=== PATIENT | female | born 1975 | race African-American/Black ===

== ENCOUNTER 2025-02-02 09:10 | Outpatient (REF) | payer OTHER, SELFPAY ==
[2025-02-02 13:15] LABS: Appearance Urine Clear; Glucose Urine UA >=1000 mg/dL (Negative); PH 5.5 (5.0-9.0); Specific Gravity - Urine 1.015 (1.005-1.025); UMIC TRIGGER UACC YES
[2025-02-02 13:23] LABS: UACC Culture Trigger YES
[2025-02-02 13:31] LABS: MANUAL DIFF FLAG NO
[2025-02-02 13:43] LABS: Hematocrit 37.7 % (37.0-47.0); Hemoglobin 13.1 g/dl (12.0-16.0); Imm Gran Abs Auto 0.02 X10*3/uL (0.00-0.03); Imm Gran Pct Auto 0.4 % (0.0-0.4); Lymphocytes Absolute Auto 1.5 X10*3/uL (1.2-4.9); Mean Corpuscular HGB Conc 34.7 g/dl (31.0-35.0); Mean Corpuscular Hemoglobin 29.6 pg (27.0-33.0); Mean Corpuscular Volume 85.3 fL (80.0-98.0); NRBC Abs Auto 0.000 X10*3/uL (0.0-0.012); NRBC Pct Auto 0.0 /100WBC (0.0-0.2); Platelet Count 204 X10*3/uL (160-400); Red Blood Count 4.42 X10*6/uL (4.20-5.50); White Blood Count 5.6 X10*3/uL (4.8-10.8)
[2025-02-02 14:11] LABS: Alanine Aminotransferase 45 U/L (0-31); Albumin Level 4.3 g/dL (3.5-5.0); Alkaline Phosphatase 132 U/L (39-117); Anion Gap 12 (12-20); Aspartate Amino Transferase 37 U/L (5-31); Blood Urea Nitrogen 12 mg/dL (9-16); Calcium 9.5 mg/dL (8.4-10.2); Carbon Dioxide 27 mmol/L (22-29); Chloride 105 mmol/L (96-108); Cholesterol 206 mg/dL (<200); Estimated Glomerular Filt Rate > 60; HDL Cholesterol 40 mg/dL (>40); Magnesium 1.8 mg/dL (1.6-2.6); Potassium 3.9 mmol/L (3.3-5.1); Sodium 140 mmol/L (135-145); Total Protein 7.5 g/dL (6.5-8.0); Triglycerides 160 mg/dL (<150)
[2025-02-02 14:38] LABS: Folate 13.2 ng/mL (> or = 4.0); Vitamin B12 523 pg/mL (200-900)
[2025-02-03 04:20] LABS: HBS Num1 2.73 mIU/mL (0-7.99); HBsAGNum1 0.30 S/CO (0.00-0.99); HIV Num 1 0.05 S/CO (0.00-0.99); Hepatitis B Surface Antigen Negative (Negative); ~HepC Num1 0.08 S/CO (0.00-0.79); ~Hepatitis B Surface Antibody NONREACTIVE (Nonreactive); ~Hepatitis C Antibody Nonreactive (Nonreactive)
[2025-02-05 12:33] LABS: VITAMIN D (1,25 OH) D3 73 pg/mL; Vit D (1,25-Dihydroxy) Total 73 pg/mL (18-72); Vitamin D (1,25 OH) D2 <8 pg/mL
== END 2025-02-02 09:11 | disposition home or self-care (01) ==
LOC: HO.HKASLDS 09:10
PROVIDERS: PCP Student in an Organized Health Care Education/Training Program; Visit Provider Student in an Organized Health Care Education/Training Program
DX: Z13.9 Encounter for screening, unspecified (principal); Z28.82 Immunization not carried out because of caregiver refusal; F43.9 Reaction to severe stress, unspecified; R73.09 Other abnormal glucose; G47.00 Insomnia, unspecified; M25.572 Pain in left ankle and joints of left foot; M79.672 Pain in left foot; Z78.9 Other specified health status; Z56.0 Unemployment, unspecified; Z78.0 Asymptomatic menopausal state
CPT/HCPCS: 36415; 80053; 80061; 81001; 82607; 82652; 82746; 83036; 83735; 84443; 85025; 86706; 86803; 87086; 87088; 87186; 87340; 87389; 90471; 99202

== ENCOUNTER 2025-02-02 09:10 | Outpatient (AMB) | payer OTHER, SELFPAY ==
--- NOTE | 2025-02-02 09:16 | A.OFFPC_ITS ---
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 Preventive Care: The patient has not seen a primary care doctor in two to three years since moving from [place]. Her last mammogram was three years ago. She is due for a Pap smear and has never had a colonoscopy. Postmenopausal State: The patient reports being postmenopausal, with her last menstrual period occurring at age 45 or 46. She experiences associated symptoms including hot flashes. Insomnia: The patient reports she does not sleep well, which she attributes to stress. Ankle and Foot Pain: The patient reports experiencing ankle and heel pain, noting the presence of a bulge in the ankle area. She states the pain sometimes radiates to the back of the knee. Social History: - Substance Use: The patient reports vap ing nicotine. - She drinks alcohol socially and denies illicit drug use. 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 - Housing: [facility] and is in need of a place to stay. - Transportation: She does not have a ca r and finds using buses difficult. - Family: She has children who are grown up. Family History: - The patient denies any family history of colon cancer. Past Medical History - Postmenopausal since age 47-46. - Last primary care visit was 2-3 years ago. - Last mammogram was 3 years ago. Health Maintenance - Last PCP visit was 2-3 years ago. - Mammogram: Due for screening; last per formed 3 years ago. - Pap smear: Due for screening. - Colon Cancer Screening: Patient is due and opted for Cologuard after discussion of options. - Vaccinations: Has received the flu marely t. - Last Tdap is unknown. - Substance use: Vapes nicotine, drinks alcohol socially. [facility] Medical History Unemployed Stress at home Needs assistance with community resources Family History (Updated 02/02/25 @ 09:32 by Dipti Catalan [facility]) Mother Diabetes HTN (hypertension) Father Diabetes Social History Housing: House Patient Tobacco Use Status: Never used Tobacco service: No Current occupational status: unemployed Cognitive needs: No Hearing needs: No Vision needs: Yes (rx glasses) Questionnaire PHQ-9 Over the last 2 weeks, how often have you been bothered by any of the following problems? 1. Little interest or pleasure in doing things: nearly every day 2. Feeling down, depressed, or hopeless: nearly every day 3. Trouble falling or staying asleep, or sleeping too much: nearly every day 4. Feeling tired or having little energy: nearly every day 5. Poor appetite or overeating: more than half the days 6. Feeling bad about yourself - or that you are a failure or have let yourself or your family down: several days 7. Trouble concentrating on things, such as reading the newspaper or watching television: several days 8. Moving or speaking so slowly that other people could have noticed. Or the opposite - being so fidgety or restless that you have been moving around a lot more than usual: several days 9. Thoughts that you would be better off or of hurting yourself in some way: not at all Total score: 17 Depression Screening Interpretation: Positive Depression Screening Follow-up: Follow-up Visit Requested Depression Screening Done: Yes Source: Developed by Drs. Clint Piper, Daisy Andrews, Elier Meyers and colleagues, with an educational bill from [employer]. Thrive Questionnaire Date Thrive assessed: 02/02/25 I am a: Patient What is your living situation today?: I choose not to answer this question Within the past 12 months, did the food you bought not last and you didn't have the money to get more?: I choose not to answer this question Within the past 12 months, did you worry whether your food would run out before you got money to buy more?: I choose not to answer this question Do you have trouble paying for medicines?: I choose not to answer this question Do you have trouble getting transportation to medical appointments?: Yes Do you have trouble paying your heating and electricity bill?: I choose not to answer this question Do you have trouble taking care of your child, family member or friend?: No Do you have trouble with day-to-day activities such as bathing, preparing meals, shopping, managing finances, etc.?: No Are you currently unemployed and looking for a job?: Yes Are you interested in more education?: No Please select the resources that you would like help with: Housing/Longterm, Food, Paying for medicine and Transportation Currently or been in a relationship where the following occur: No concerns reported THRIVE Score: 1 AUDIT C Alcohol Use Questionnaire (AUDIT-C) 1. How often do you have a drink containing alcohol?: Monthly or less 2. How many drinks containing alcohol do you have on a typical day when you are drinking?: 1 or 2 3. How often do you have six or more drinks on one occasion?: Never Total Score: 1 BUDDY-7 AMB Questionnaire BUDDY-7 Date BUDDY - 7 assessed: 02/02/25 Feeling nervous, anxious, or on edge: 1 = Several days Not being able to stop or control worryin = Several days Worrying too much about different things: 1 = Several days Trouble relaxin = Several days Being so restless that it is hard to sit still: 0 = Not at all Becoming easily annoyed or irritable: 1 = Several days Feeling afraid as if something awful might happen: 0 = Not at all Total BUDDY-7 score (0-4 normal; 5-9 mild; 10-14 moderate; 15-21 severe): 5 Source: Developed by Drs. Clint Piper, Daisy Andrews, Elier Meyers and colleagues, with an educational bill from [employer]. Review of Systems Narrative Review of Systems - Constitutional: Reports significant stress. - Endocrine: Reports hot flashes. - Genitourinary: Reports frequent urination. - Gynecologic: Reports being postmenopausal since age 45 or 46. - Musculoskeletal: Reports pain in the ankles and heels, which sometimes radiates to the back of the knee. - Neurological/Psychiatric: Reports insomnia due to stress and feeling lost . - Gastrointestinal: Reports normal bowel movements. 10-point ROS reviewed and negative except as noted in HPI Physical exam (Primary Care) Vital Signs: Last Vital Signs Temp 98.1 F 02/02/25 09:29 Pulse 89 02/02/25 09:29 BP 132/83 02/02/25 09:29 Pulse Ox 96 02/02/25 09:29 Oxygen Delivery Method Room Air 02/02/25 09:29 BMI result Body Mass Index 25.7 Tobacco/Smoking Status: Tobacco use Status Tobacco use date assessed 02/02/25 02/02/25 09:17 Patient Tobacco Use Status Never used Tobacco 02/02/25 09:17 PHQ-9: PHQ-9 Score PHQ-9: Total score 17 02/02/25 10:47 Depression Screening Interpretation: Positive Depression Screening Follow-up: Follow-up Visit Requested Thrive Assessment: Date of Thrive Assessment Date Thrive assessed 02/02/25 02/02/25 09:17 Currently or been in a relationship where the following occur: No concerns reported Narrative Physical Exam General: Well-appearing, in no acute distress. Vital signs: Blood pressure looks good. Body mass index is good. HEENT: Normocephalic, atraumatic. PERRLA, EOMI. Conjunctiva clear, sclera anicteric. Oropharynx clear, mucous membranes moist. TMs intact bilaterally. Neck: Supple, no lymphadenopathy, no thyromegaly, no JVD or carotid bruits. Cardiovascular: RRR, normal S1/S2, no murmurs, rubs, or gallops. Peripheral pulses 2+ and symmetric. No edema. Respiratory: Lungs clear to auscultation bilaterally, no wheezes, rales, or rhonchi. Normal effort. Abdomen: Soft, non-tender, non-distended. Normoactive bowel sounds. No hepatosplenomegaly, no masses. MSK: Full range of motion, no joint swelling or deformity. Normal gait. Reports pain in ankles and heel, with a bulge present. Varus valgus noted. Skin: Warm, dry, intact. No rashes, lesions, or pallor. Neuro: Alert and oriented x3. Cranial nerves II-XII intact. Strength 5/5 throughout. Sensation intact. Reflexes 2+ symmetric. Normal coordination and gait. Psych: Appropriate mood and affect. Normal judgment and insight. Reports stress affecting sleep. Office Procedures Flu Questionnaire Does the patient have a severe egg allergy?: No Does the patient have severe life threatening allergies?: No Does the patient have a fever or illness today?: No Has the patient ever had Guillain-Huntington Syndrome?: No Has the patient ever had any past reaction to a flu shot?: No Results AMB Hemoglobin A1c AMB Hemoglobin A1c 12.0 % Last Edit by Dipti Catalan CMA on 02/02/25 10: 48 Immunizations Fluarix [id number] (PF) 45 mcg (15 mcg x 3)/0.5 mL IM syringe Performing Provider: Dwayne Huntley MD Performing Location: [facility] [place] [facility] Documented (not given) by: Dipti Catalan CMA on 02/02/25 09:38 Reason Not Given: Patient Refused Results Reviewed Results Reviewed: Laboratory Last Values Hgb A1c (Clinic) 12.0 % (4.0-6.0) H 02/02/25 09:32 Coding Level of Care Code New Pt Level 4 (80687) Diagnoses Stress at home F43.9 Unemployed Z56.0 Needs assistance with community resources Z78.9 Elevated glucose level R73.09 Post-menopause Z78.0 Insomnia G47.00 Ankle pain, left M25.572 Left foot pain M79.672 Assessment & Plan Assessment & Plan (1) Stress at home: Code(s): F43.9 - Reaction to severe stress, unspecified Category: Social Hx (2) Unemployed: Code(s): Z56.0 - Unemployment, unspecified Category: Social Hx (3) Needs assistance with community resources: Code(s): Z78.9 - Other specified health status Category: Social Hx (4) Elevated glucose level: Code(s): R73.09 - Other abnormal glucose (5) Post-menopause: Code(s): Z78.0 - Asymptomatic menopausal state (6) Insomnia: Code(s): G47.00 - Insomnia, unspecified (7) Ankle pain, left: Code(s): M25.572 - Pain in left ankle and joints of left foot (8) Left foot pain: Code(s): M79.672 - Pain in left foot Plan Consent Patient was informed and verbally consented to the use of an ambient scribe for clinic note documentation during this visit. Plan 1. Encounter For Preventive Health Services - A comprehensive set of labs will be ordered, including a complete blood count, comprehensive metabolic panel, hemoglobin A1c, lipid panel, hepatitis B and C, HIV screen, magnesium, TSH, vitamin B12, folate, vitamin D, and a urinalysis. - A referral will be placed for a screening mammogram. - An order will be placed for a Cologuard test for colorectal cancer screening. - The patient will schedule a separate appointment for a Pap smear to be performed in the office. - A tetanus (Tdap) vaccine was offered. 2. Ankle And Foot Pain - The patient's leg pain will be discussed at the follow-up visit. - A referral to podiatry may be considered for evaluation, as the patient may need shoe inserts. 3. Social Determinants Of Health - A referral will be made to a community nurse navigator to connect the patient with resources for housing and employment. 4. Follow-Up - The patient will follow up in two weeks to review the results of the blood work. Discussion Notes I had a comprehensive discussion with the patient about establishing care and focusing on preventive health maintenance, as she has not seen a primary care provider in several years. We reviewed the need for several screenings, including a mammogram, Pap smear, and colorectal cancer screening. I explained the two options for colorectal cancer screening: a traditional colonoscopy, which involves sedation and a preparation day, and the at-home Cologuard test. The patient chose to proceed with Cologuard. We also discussed her significant life stressors, including housing insecurity and unemployment, which are af fecting her sleep. I informed her that I would refer her to our community nurse navigator to connect her with local resources that can provide assistance. I ordered comprehensive blood work to get a baseline understanding of her health and will see her back in two weeks to review the results. Patient Instructions - Please complete your blood work today. - You will receive a Cologuard kit in the mail at your home. - The facility will call you to schedule your mammogram. - Please curing pickling packer your phone for scheduling calls, and if you do not receive a call within two weeks, please contact the facility. - Please call our office to schedule a separate appointment for your Pap smear. - A community nurse navigator will reach out to you to provide information on community resources for housing and employment. - Please follow up in the office in two weeks to discuss your lab results. Medical Decision Making The patient is a 49-year-old female establishing care after a multi-year gap. The primary focus of this visit was on preventive health maintenance, as she is overdue for multiple screenings appropriate for her age. Comprehensive lab work was ordered to establish a baseline and evaluate for underlying conditions contributing to her non-specific symptoms, especially given her postmenopausal status and concerns about her hormones. After discussing the risks and benefits of colonoscopy versus Cologuard, the patient's preference for a non-invasive method guided the decision to order Cologuard. The patient's significant psychosocial stressors, including unemployment and housing insecurity, are clearly impacting her well-being and sleep; therefore, a referral to a community nurse navigator is warranted to provide support and connect her with vital resources. Her musculoskeletal complaints of ankle pain and observed leg deformity will be re-evaluated at the follow-up visit, with a potential referral to podiatry if symptoms persist or worsen. The plan is to address the most pr essing health maintenance and social support needs immediately and then reassess her overall health status with the lab results in two weeks. Total time spent caring for the patient today was 30 minutes. This includes time spent before the visit reviewing the chart, time spent documenting, and time spent reviewing laboratory results, diagnostic imaging, medications, performing a medically necessary evaluation, counseling on diagnoses, care coordination Orders: Orders Complete Blood Count Auto Diff Today Z13.9 - Encounter for screening, unspecified Comprehensive Met. Panel Today Z13.9 - Encounter for screening, unspecified Hepatitis B Surface Antigen Today Z13.9 - Encounter for screening, unspecified Hepatitis C Antibody Today Z13.9 - Encounter for screening, unspecified Lipid Panel Today Z13.9 - Encounter for screening, unspecified HIV Ab/Ag Today Z13.9 - Encounter for screening, unspecified AMB Hemoglobin A1c Today Z13.9 - Encounter for screening, unspecified Influenza [id number] Immunization Today Z23 - Encounter for immunization Hemoglobin A1c Today Z13.9 - Encounter for screening, unspecified Hepatitis B Surface Antibody Today Z13.9 - Encounter for screening, unspecified Magnesium Today Z13.9 - Encounter for screening, unspecified TSH reflex Free T4 Today Z13.9 - Encounter for screening, unspecified UA CC w/rflx Micro + Cult Today Z13.9 - Encounter for screening, unspecified Vitamin D 1,25 dihydroxy Today Z13.9 - Encounter for screening, unspecified Vitamin B12 and Folate Today Z13.9 - Encounter for screening, unspecified MM screening mammo BI Today Z12.31 - Encounter for screening mammogram for malignant neoplasm of breast Referrals Nurse Navigator Referral F43.9 - Reaction to severe stress, unspecified, Z56.0 - Unemployment, unspecified, Z78.9 - Other specified health status Cologuard Test Z12.11 - Encounter for screening for malignant neoplasm of colon, Z12.12 - Encounter for screening for malignant neoplasm of rectum
[2025-02-02 09:29] VITALS: BP 132/83; PULSE 89; TEMP 36.7; O2SAT 96; BMI 25.7
== END 2025-02-02 09:53 | disposition home or self-care (01) ==
LOC: HO.HMCFMS 09:11
PROVIDERS: Visit Provider Student in an Organized Health Care Education/Training Program
DX: F43.9 Reaction to severe stress, unspecified (principal); Z56.0 Unemployment, unspecified; Z78.9 Other specified health status; R73.09 Other abnormal glucose; Z78.0 Asymptomatic menopausal state; G47.00 Insomnia, unspecified; M25.572 Pain in left ankle and joints of left foot; M79.672 Pain in left foot; Z23 Encounter for immunization

== ENCOUNTER 2025-02-10 08:57 | Outpatient (AMB) | payer OTHER, SELFPAY ==
[2025-02-10 09:00] VITALS: BP 124/74; PULSE 90; TEMP 36.6; O2SAT 97; BMI 24.0
--- NOTE | 2025-02-10 09:00 | A.OFFPC_ITS ---
Vital Signs 02/10/25 09:00 Height 5 ft 4.72 in Weight 143 lb 4 oz BMI 24.0 BP 124/74 Blood Pressure Location Lt brachial Position Sitting Pulse 90 Pulse Source Pulse Oximeter Temp 97.8 F Temp Source Oral Pulse Oximetry (%) 97 Oxygen Delivery Method Room Air Intake Visit Reasons: lab, resched Allergies naproxen Allergy (Intermediate, Verified 02/10/25 09:00) Itching Medication List - Last Reconciled 02/10/25 by Dwayne Huntley MD dapagliflozin propanediol 10 mg PO DAILY mecobalamin (vitamin B12) 1,000 mcg sublingual BEDTIME metformin 1,000 mg PO BID nitrofurantoin macrocrystal 100 mg PO Q12H rosuvastatin 20 mg PO DAILY Tobacco use date assessed: 02/02/25 Dental Screening Dental Screen Date: 02/02/25 HPI HPI Comments History of Present Illness Details History of Present Illness The patient is a 49-year-old female presenting for a review of recent lab results. Type 2 diabetes mellitus: This is a new diagnosis based on recent laboratory findings showing a random glucose of 334 mg/dL and a hemoglobin A1c of 12%. Hyperlipidemia: Recent lab results indicate hyperlipidemia, with a total cholesterol of 206 mg/dL and triglycerides of 160 mg/dL. Her LDL is also elevated, with a target goal of below 70 mg/dL due to her new diagnosis of diabetes. Urinary tract infection: A recent urinalysis was positive for nitrites and small leukocyte esterase, indicative of a urinary tract infection. Elevated liver function tests: The patient's AST and ALT levels are noted to be elevated, which is thought to be secondary to hyperlipidemia. Medications: - The patient may be taking [id number] nter vitamin D supplements, which she was advised to discontinue. Social History: - Nutrition: Patient's diet includes ite ms such as white rice, white pasta, and white bread. - She reports trying to incorporate joi ds, carrots, and cabbages into her diet. Family History: - Reports mother took metformin and subs equently developed kidney problems. Diagnostic Results: - CBC: White blood cells, red blood cell s, hemoglobin, hematocrit, and platelets are within normal limits. - CMP: Sodium, potassium, and chloride a re normal. - Renal function including BUN, creatini ne, and estimated GFR are good. - Random glucose is elevated at 334 mg/d L. - AST/ALT are elevated. - Hemoglobin A1c: 12%. - Lipid Panel: Total cholesterol is 206 mg/dL, triglycerides are 160 mg/dL. - Vitamin D: 73 (high). - Vitamin B12: Normal. - Folate: Good. - Thyroid function: Good. - Urinalysis: Positive for nitrites and small leukocyte esterase; no microal buminuria or protein detected. - Hepatitis B, Hepatitis C, and HIV scre en: Negative. Past Medical History - Known allergy to naproxen. Health Maintenance - Cardiovascular risk reduction: Discuss ed the importance of aggressive cholesterol management due to type 2 diabetes being a risk factor for future cardiovascular events. - Diabetic care: Referrals have been yessica jenny for a nutrition consultation, a in service educator, and an dial buffer for a diabetic retinopathy screen. - A future referral to a oracle identity management consultant to c heck her feet was also mentioned. - Vitamin supplementation: Advised to st op vitamin D supplements due to a high level of 73. - Follow-up: Plan for follow-up every ree months to monitor A1c, renal function, and lipids. PFSH Medical History Diabetes type 2 Unemployed Stress at home Needs assistance with community resources Family History (Updated 02/02/25 @ 09:32 by Dipti Catalan [facility]) Mother Diabetes HTN (hypertension) Father Diabetes Social History Housing: House Patient Tobacco Use Status: Never used Tobacco service: No Current occupational status: unemployed Cognitive needs: No Hearing needs: No Vision needs: Yes (rx glasses) Questionnaire Thrive Questionnaire Date Thrive assessed: 02/01/25 I am a: Patient What is your living situation today?: I choose not to answer this question Within the past 12 months, did the food you bought not last and you didn't have the money to get more?: I choose not to answer this question Within the past 12 months, did you worry whether your food would run out before you got money to buy more?: I choose not to answer this question Do you have trouble paying for medicines?: I choose not to answer this question Do you have trouble getting transportation to medical appointments?: Yes Do you have trouble paying your heating and electricity bill?: I choose not to answer this question Do you have trouble taking care of your child, family member or friend?: No Do you have trouble with day-to-day activities such as bathing, preparing meals, shopping, managing finances, etc.?: No Are you currently unemployed and looking for a job?: Yes Are you interested in more education?: No Currently or been in a relationship where the following occur: No concerns reported THRIVE Score: 1 BUDDY-7 AMB Questionnaire BUDDY-7 Date BUDDY - 7 assessed: 02/02/25 Source: Developed by Drs. Clint Piper, Daisy Andrews, Elier Meyers and colleagues, with an educational bill from [employer]. Review of Systems Narrative Review of Systems - Constitutional: Reports fatigue and tiredness. 10-point ROS reviewed and negative except as noted in HPI Physical exam (Primary Care) Vital Signs: Last Vital Signs Temp 97.8 F 02/10/25 09:00 Pulse 90 02/10/25 09:00 BP 124/74 02/10/25 09:00 Pulse Ox 97 02/10/25 09:00 Oxygen Delivery Method Room Air 02/10/25 09:00 BMI result Body Mass Index 24.0 Tobacco/Smoking Status: Tobacco use Status Tobacco use date assessed 02/02/25 02/10/25 09:01 Patient Tobacco Use Status Never used Tobacco 02/10/25 09:01 Thrive Assessment: Date of Thrive Assessment Date Thrive assessed 02/01/25 02/10/25 09:01 Currently or been in a relationship where the following occur: No concerns reported Narrative Physical Exam General: Well-appearing, in no acute distress. Vital signs: Within normal limits. HEENT: Normocephalic, atraumatic. PERRLA, EOMI. Conjunctiva clear, sclera anicteric. Oropharynx clear, mucous membranes moist. TMs intact bilaterally. Neck: Supple, no lymphadenopathy, no thyromegaly, no JVD or carotid bruits. Cardiovascular: RRR, normal S1/S2, no murmurs, rubs, or gallops. Peripheral pulses 2+ and symmetric. No edema. Respiratory: Lungs clear to auscultation bilaterally, no wheezes, rales, or rhonchi. Normal effort. Abdomen: Soft, non-tender, non-distended. Normoactive bowel sounds. No hepatosplenomegaly, no masses. MSK: Full range of motion, no joint swelling or deformity. Normal gait. Skin: Warm, dry, intact. No rashes, lesions, or pallor. Neuro: Alert and oriented x3. Cranial nerves II-XII intact. Strength 5/5 throughout. Sensation intact. Reflexes 2+ symmetric. Normal coordination and gait. Psych: Appropriate mood and affect. Normal judgment and insight. Coding Level of Care Code Est Pt Level 3 (50855) Diagnoses Diabetes type 2 E11.9 Hyperlipidemia E78.5 Elevated liver enzymes R74.8 Urinary tract infection N39.0 Assessment & Plan Assessment & Plan (1) Diabetes type 2: Code(s): E11.9 - Type 2 diabetes mellitus without complications Category: Medical (2) Hyperlipidemia: Code(s): E78.5 - Hyperlipidemia, unspecified Category: Medical (3) Elevated liver enzymes: Code(s): R74.8 - Abnormal levels of other serum enzymes Category: Medical (4) Urinary tract infection: Code(s): N39.0 - Urinary tract infection, site not specified Plan Consent The risks, benefits, and alternatives of initiating oral medications for diabetes were discussed. The patient expressed concern regarding metformin due to her mother's history of kidney problems associated with the medication. It was explained that her kidney function is currently normal and will be monitored closely every three months to ensure safety. The patient understood and verbally consented to a trial of metformin with close follow-up. Patient was informed and verbally consented to the use of an ambient scribe for clinic note documentation during this visit. Plan 1. Type 2 Diabetes Mellitus - Start metformin to lower hemoglobin A1c. - Counseling was provided on taking the medication with food and the potential for temporary gastrointestinal side effects such as nausea, bloating, or gas; if symptoms persist beyond two weeks, the patient should return to be switched to an extended-release formula. - Start dapagliflozin, which provides kidney and heart protection. - Start vitamin B12 supplementation, as metformin can lower B12 levels. - Defer initiating insulin therapy at this time, with the goal of lowering A1c with oral agents first. - Placed referrals to nutrition for dietary education and to a in service educator. - Place referral to ophthalmology to screen for diabetic retinopathy. - A podiatry referral will be considered later. - Patient was educated that home glucose monitoring is not necessary at this time as she is not on insulin. - The patient was counseled on diet, including reducing intake of white rice, pasta, and bread, and increasing consumption of green vegetables. - Will recheck hemoglobin A1c, renal function, and lipids every three months. 2. Hyperlipidemia - Start rosuvastatin 20 mg daily to manage cholesterol and reduce cardiovascular risk, with a target LDL of less than 70 mg/dL. 3. Urinary Tract Infection - Prescribe nitrofurantoin (Macrobid), one pill in the morning and one at night for five days. 4. Elevated Liver Function Tests - The elevated liver enzymes are attributed to hyperlipidemia and are expected to normalize with treatment. - Order a baseline ultrasound of the liver. 5. Follow-Up - Return to clinic in one month to touch base and assess medication tolerance. Discussion Notes I reviewed the lab results with the patient, which revealed a new diagnosis of type 2 diabetes with a random glucose of 334 and an A1c of 12%. I explained that while her numbers are high enough to warrant insulin, I would prefer to start with a comprehensive oral medication regimen first, which includes metformin and dapagliflozin. The patient voiced concerns about metformin causing kidney damage, as she believes happened to her mother. I reassured her that her current kidney function is good and that we will monitor it closely every three months to ensure her safety, after which she agreed to try the medication. I also discussed the diagnosis of hyperlipidemia, with a cholesterol of 206 and triglycerides of 160, and explained the need to start rosuvastatin 20 mg to reduce her cardiovascular risk, aiming for an LDL below 70. I informed her that her urinalysis was positive for an infection, for which I am prescribing a five- day course of nitrofurantoin. We discussed that her elevated liver enzymes are likely due to her high lipid levels and should normalize with treatment, but a baseline liver ultrasound will be ordered. I advised her to discontinue any vitamin D supplements due to a high level and to start vitamin B12 supplementation concurrently with metformin. I have placed referrals for a in service educator, surface grinder, and dial buffer as part of a comprehensive care plan. The patient was instructed to follow up in one month to assess medication tolerance. Patient Instructions - You have been diagnosed with type 2 diabetes based on your recent lab work. - Take the following new medications as prescribed: Metformin, Dapagliflozin, Rosuvastatin, and a Vitamin B12 supplement. - Take Metformin with food. - You may experience some stomach upset, bloating, or gas for the first one to two weeks, which is normal. - If these symptoms continue after two weeks, please contact our office. - You have a urine infection. - Take the antibiotic (Nitrofurantoin) one time in the morning and one time at night for five days. - If you are taking any Vitamin D supplements, please stop taking them. - You will need to make changes to your diet to help control your blood sugar. - Reduce your intake of white rice, white pasta, and white bread. - Increase your intake of green vegetables like kale, spinach, and lettuce. - You do not need to check your blood sugar with a finger prick machine at home. - We have placed referrals for you to see an eye doctor, a surface grinder, and a environmental educator. - Please schedule a follow-up appointment to see me in one month. Medical Decision Making The patient is a 49-year-old female with new-onset, severe hyperglycemia (HgbA1c 12.0%, random glucose 334 mg/dL) and mixed hyperlipidemia. Although her A1c level could warrant immediate insulin therapy, the decision was made to initiate aggressive oral therapy first, given this is a new diagnosis and to avoid the significant lifestyle changes associated with insulin. Metformin was chosen as the cornerstone of treatment, and though the patient expressed concern due to her mother's history of renal complications, her own renal function is currently normal, and she was reassured with a plan for close monitoring every three months. Dapagliflozin (SGLT2 inhibitor) was added for its dual glycemic and cardio-renal protective benefits. Given her new diagnosis of diabetes, which is a significant atherosclerotic cardiovascular disease risk equivalent, high-intensity statin therapy with rosuvastatin 20 mg was initiated for primary prevention, with a goal LDL less than 70 mg/dL. The mildly elevated liver transaminases are presumed secondary to non-alcoholic fatty liver disease in the setting of her dyslipidemia, and a baseline liver ultrasound is warranted. Urinalysis finding of nitrites and leukocyte esterase prompted treatment for a UTI with a 5-day course of nitrofurantoin. A comprehensive, team-based approach has been initiated with referrals to ophthalmology, nutrition, and a in service educator to provide robust support and education. Follow-up is scheduled in one month to assess medication tolerance and then quarterly to monitor glycemic control and renal function. Total time spent caring for the patient today was 20 minutes. This includes time spent before the visit reviewing the chart, time spent documenting, and time spent reviewing laboratory results, diagnostic imaging, medications, performing a medically necessary evaluation, counseling on diagnoses, care coordination Orders: Referrals Nurse Navigator Referral E11.9 - Type 2 diabetes mellitus without complications Nutrition/Dietitian Referral E11.9 - Type 2 diabetes mellitus without c omplications Ophthalmology Referral E11.9 - Type 2 diabetes mellitus without complications, Z13.5 - Encounter for screening for eye and ear disorders Medications: New mecobalamin (vitamin B12) place tablet under tongue and allow to dissolve for at least30 secs before swallowing 1,000 mcg sublingual BEDTIME 90 tabs 0RF nitrofurantoin macrocrystal must administer with a meal/food 100 mg PO Q12H 10 caps 0RF metformin 1,000 mg PO BID 180 tabs 0RF E11.9 - Type 2 diabetes mellitus without complications rosuvastatin 20 mg PO DAILY 90 tabs 0RF dapagliflozin propanediol 10 mg PO DAILY 90 tabs 0RF E11.9 - Type 2 diabetes mellitus without complications
== END 2025-02-10 10:07 | disposition home or self-care (01) ==
LOC: HO.HMCFMS 08:57
PROVIDERS: PCP Student in an Organized Health Care Education/Training Program; Visit Provider Student in an Organized Health Care Education/Training Program
DX: E11.9 Type 2 diabetes mellitus without complications (principal); E78.5 Hyperlipidemia, unspecified; R74.8 Abnormal levels of other serum enzymes; N39.0 Urinary tract infection, site not specified

== ENCOUNTER → 2025-02-10 08:57 | Outpatient (BNVA) | payer OTHER, SELFPAY | PROVIDERS: PCP Family Medicine; Visit Provider Student in an Organized Health Care Education/Training Program | DX: E11.9 Type 2 diabetes mellitus without complications (principal); E78.5 Hyperlipidemia, unspecified; R74.8 Abnormal levels of other serum enzymes; N39.0 Urinary tract infection, site not specified | CPT/HCPCS: 99212 ==

== ENCOUNTER 2025-02-17 08:50 | Outpatient (AMB) | payer OTHER, SELFPAY ==
--- NOTE | 2025-02-17 08:55 | A.OFFPC_ITS ---
Vital Signs 02/17/25 08:58 Height 5 ft 4.72 in Weight 151 lb BMI 25.3 BP 140/93 H Blood Pressure Location Rt brachial Position Sitting Respiration 18 Pulse 97 Pulse Source Monitor Temp 99.2 F Temp Source Oral Pulse Oximetry (%) 96 Oxygen Delivery Method Room Air Intake Visit Reasons: Lab Review/PAP Intake Note: lab review/ pap Classroom Assistant Required: No Accompanied by: Self / Same As Patient Allergies naproxen Allergy (Intermediate, Verified 02/17/25 08:57) Itching Tobacco use date assessed: 02/02/25 Dental Screening Dental Screen Date: 02/02/25 HPI HPI Comments History of Present Illness Details History of Present Illness The patient is a 49 year old female presenting for a Papanicolaou (Pap) smear. Preventative Care: Papanicolaou (Pap) Smear: The patient is scheduled for a routine Papanicolaou (Pap) smear. Elevated blood pressure reading: A previous blood pressure reading was 124/74 mmHg. An elevated reading was noted during this visit, but it was taken incorrectly with the patient's arms hanging down. The elevated reading is also attributed to patient anxiety regarding the Pap smear procedure. Long-term (current) drug therapy: The patient is currently taking Dapagliflozin. Lab results related to her medication have been previously reviewed. Medications: - Dapagliflozin Diagnostic Results: - Vitals: - Previous blood pressure: 124/74 mmHg - Labs: - Prior lab results were reviewed with the patient before this visit; specific values were not discussed. Past Medical History - The patient is taking Dapagliflozin, i ndicating a chronic condition being managed. Health Maintenance - Cervical Cancer Screening: Patient pre sents for a Papanicolaou (Pap) smear. [facility] Medical History Diabetes type 2 Unemployed Stress at home Needs assistance with community resources Family History Mother Diabetes HTN (hypertension) Father Diabetes Social History (Updated 02/17/25 @ 08:58 by Jluis Petty CMA) Housing: House Alcohol intake: current Comment: ocasionally Patient Tobacco Use Status: Never used Tobacco Use of substances other than those prescribed or required for medical reasons: No service: No Current occupational status: unemployed Cognitive needs: No Hearing needs: No Vision needs: Yes (rx glasses) Questionnaire Thrive Questionnaire Date Thrive assessed: 02/01/25 I am a: Patient What is your living situation today?: I choose not to answer this question Within the past 12 months, did the food you bought not last and you didn't have the money to get more?: I choose not to answer this question Within the past 12 months, did you worry whether your food would run out before you got money to buy more?: I choose not to answer this question Do you have trouble paying for medicines?: I choose not to answer this question Do you have trouble getting transportation to medical appointments?: Yes Do you have trouble paying your heating and electricity bill?: I choose not to answer this question Do you have trouble taking care of your child, family member or friend?: No Do you have trouble with day-to-day activities such as bathing, preparing meals, shopping, managing finances, etc.?: No Are you currently unemployed and looking for a job?: Yes Are you interested in more education?: No Currently or been in a relationship where the following occur: No concerns reported THRIVE Score: 1 BUDDY-7 AMB Questionnaire BUDDY-7 Date BUDDY - 7 assessed: 02/02/25 Source: Developed by Drs. Clint Piper, Daisy Andrews, Elier Meyers and colleagues, with an educational bill from [employer]. Review of Systems Narrative Review of Systems - Psychiatric: Reports anxiety and worry related to the scheduled Pap smear. 10-point ROS reviewed and negative except as noted in HPI Physical exam (Primary Care) Vital Signs: Last Vital Signs Temp 99.2 F 02/17/25 08:58 Pulse 97 02/17/25 08:58 Resp 18 02/17/25 08:58 BP 140/93 H 02/17/25 08:58 Pulse Ox 96 02/17/25 08:58 Oxygen Delivery Method Room Air 02/17/25 08:58 BMI result Body Mass Index 25.3 Tobacco/Smoking Status: Tobacco use Status Tobacco use date assessed 02/02/25 02/17/25 09:00 Patient Tobacco Use Status Never used Tobacco 02/17/25 09:00 Thrive Assessment: Date of Thrive Assessment Date Thrive assessed 02/01/25 02/17/25 09:00 Currently or been in a relationship where the following occur: No concerns reported Narrative Physical Exam General: Well-appearing, in no acute distress. Vital signs: Blood pressure recorded previously as 124/74. HEENT: Normocephalic, atraumatic. PERRLA, EOMI. Conjunctiva clear, sclera anicteric. Oropharynx clear, mucous membranes moist. TMs intact bilaterally. Neck: Supple, no lymphadenopathy, no thyromegaly, no JVD or carotid bruits. Cardiovascular: RRR, normal S1/S2, no murmurs, rubs, or gallops. Peripheral pulses 2+ and symmetric. No edema. Respiratory: Lungs clear to auscultation bilaterally, no wheezes, rales, or rhonchi. Normal effort. Abdomen: Soft, non-tender, non-distended. Normoactive bowel sounds. No h epatosplenomegaly, no masses. MSK: Full range of motion, no joint swelling or deformity. Normal gait. Skin: Warm, dry, intact. No rashes, lesions, or pallor. Neuro: Alert and oriented x3. Cranial nerves II-XII intact. Strength 5/5 throughout. Sensation intact. Reflexes 2+ symmetric. Normal coordination and gait. Psych: Appropriate mood and affect. Normal judgment and insight. Coding Level of Care Code Est Pt Level 3 (62506) Diagnoses Diabetes type 2 E11.9 Cervical cancer screening Z12.4 Assessment & Plan Assessment & Plan (1) Diabetes type 2: Code(s): E11.9 - Type 2 diabetes mellitus without complications Category: Medical (2) Cervical cancer screening: Code(s): Z12.4 - Encounter for screening for malignant neoplasm of cervix Plan Consent Informed consent was obtained for the Papanicolaou (Pap) smear after a detailed explanation of the procedure. The process was described to include a manual pelvic examination to assess the uterus, ovaries, and locate the cervix. It was explained that a speculum, which may be cold and lubricated, would then be inserted to visualize the cervix, followed by the use of a small brush to collect cervical cells. Patient was informed and verbally consented to the use of an ambient scribe for clinic note documentation during this visit. Plan 1. Preventative Care: Papanicolaou (Pap) Smear - Proceed with the Papanicolaou (Pap) smear as planned. - The procedure will include a manual pelvic exam, followed by speculum insertion to visualize the cervix, and collection of cells with a small brush. Patient placed in dorsal lithotomy position. A speculum was inserted to visualize the cervix. The cervical os and transformation zone were identified. Using a brush ectocervical cells were obtained by rotating the spatula 360? around the external os. liquid-based cytology, spatula was rinsed in preservative solution per protocol 2. Elevated Blood Pressure Reading - Recheck blood pressure using the correct technique, as the initial measurement was performed improperly. - Reassured the patient that antihypertensive medication is not indicated at this time, as the elevated reading is likely secondary to incorrect technique and situational anxiety. Discussion Notes I confirmed with the patient that the primary reason for today's visit is the Pap smear, as her lab results related to Dapagliflozin therapy had already been reviewed. I noted the blood pressure was taken incorrectly and explained that we would re-measure it properly. I reassured her that I would not be prescribing blood pressure medication, attributing the likely elevation to anxiety about the procedure. I then detailed the Pap smear procedure to provide informed consent and alleviate her concerns. I explained that I would first perform a manual pelvic exam to assess her organs and locate the cervix before inserting a speculum, and then use a small brush to collect the cells. Patient Instructions - Your blood pressure will be taken again to ensure it is measured correctly. - For the Pap smear, the doctor will first perform a manual exam to check your uterus and ovaries. - A device called a speculum will then be inserted; it may feel cold. - A small brush will be used to collect a sample of cells from your cervix. Medical Decision Making The patient presented for a scheduled Pap smear. A chart note for lab review was disregarded as we had previously discussed her results and management with Dapagliflozin. A blood pressure reading was taken improperly prior to my evaluation. Given her prior normal reading of 124/74 mmHg and her stated anxiety about the pelvic exam, I am not concerned for new-onset hypertension. The plan is to re-measure her blood pressure with correct technique for an accurate assessment, and I have reassured the patient that I do not intend to start antihypertensive therapy at this time. To ensure patient understanding and comfort, I provided a [id number] explanation of the Pap smear procedure, covering the manual exam, speculum insertion, and cell collection. Total time spent caring for the patient today was 20 minutes. This includes time spent before the visit reviewing the chart, time spent documenting, and time spent reviewing laboratory results, diagnostic imaging, medications, performing a medically necessary evaluation, counseling on diagnoses, care coordination. Orders: Orders Pap Smear Today Z12.4 - Encounter for screening for malignant neoplasm of cervix
[2025-02-17 08:58] VITALS: BP 140/93; PULSE 97; RESP 18; TEMP 37.3; O2SAT 96; BMI 25.3
== END 2025-02-17 09:30 | disposition home or self-care (01) ==
LOC: HO.HMCFMS 08:51
PROVIDERS: PCP Student in an Organized Health Care Education/Training Program; Visit Provider Student in an Organized Health Care Education/Training Program
DX: E11.9 Type 2 diabetes mellitus without complications (principal); Z12.4 Encounter for screening for malignant neoplasm of cervix

== ENCOUNTER 2025-02-17 08:50 | Outpatient (REF) | payer OTHER, SELFPAY | END 2025-02-17 08:51 | disposition home or self-care (01) | LOC: HO.LNP 08:50 | PROVIDERS: PCP Family Medicine; Visit Provider Student in an Organized Health Care Education/Training Program | DX: Z12.4 Encounter for screening for malignant neoplasm of cervix (principal); E11.9 Type 2 diabetes mellitus without complications; Z79.899 Other long term (current) drug therapy | CPT/HCPCS: 88175; 99212 ==

== ENCOUNTER 2025-03-17 08:52 | Outpatient (AMB) | payer OTHER, SELFPAY ==
--- NOTE | 2025-03-17 08:59 | MHC.PC.OV ---
Vital Signs 03/17/25 09:01 Height 5 ft 4.72 in Intake Visit Reasons: 1 mo f/u Accompanied by: Self / Same As Patient Allergies naproxen Allergy (Intermediate, Verified 03/17/25 09:01) Itching Medication List - Last Reconciled 03/17/25 by Dwayne Huntley MD dapagliflozin propanediol 10 mg PO DAILY mecobalamin (vitamin B12) 1,000 mcg sublingual BEDTIME metformin 1,000 mg PO BID rosuvastatin 20 mg PO DAILY Tobacco use date assessed: 03/17/25 Dental Screening Dental Screen Date: 03/17/25 Did you have a dental visit in the last 12 months?: No HPI HPI Comments History of Present Illness Details History of Present Illness The patient is a 49 year old female presenting with a follow-up visit to review Pap smear results. Bilateral Heel Pain: The patient reports bilateral heel pain that has been present for approximately 3 to 4 years. She reports the pain is present in both heels but is more prominent in one leg. She also notes a bulge on her ankle and experiences a sharp pain in her heel upon standing after sitting, which heats up and travels to behind her knee. Associated symptoms include a feeling of being off balance. Chest Pain: The patient reports experiencing sharp pains in the heart area, which started approximately one to two weeks ago. Tobacco Use: The patient reports using a vape. Diabetes Mellitus: The patient has a history of diabetes, which she mentioned in the context of an application for disability. Social History: - Housing/Living Situation: The patient is currently staying with various friends and family members. - Employment: The patient is looking for a job and has applied for salazar assistance, which was denied. - Substance Use: The patient reports vaping. Diagnostic Results: - Pap smear: Results were normal. - Cologuard: Results are pending. Past Medical History - Diabetes mellitus Health Maintenance - Cervical cancer screening: Pap smear results were normal; next screening is due in three years. - Colon cancer screening: The patient completed a Cologuard test, but results are not yet available. - Substance use: The patient was advised to stop vaping due to associated cardiovascular risks. PFSH Medical History Vapes non-nicotine containing substance Sinus tachycardia Chest pain Heel pain Diabetes type 2 Unemployed Stress at home Needs assistance with community resources Family History Mother Diabetes HTN (hypertension) Father Diabetes Social History Housing: House Alcohol intake: current Comment: ocasionally Patient Tobacco Use Status: Never used Tobacco e-Cigarette/Vaping Use: Currently Using service: No Current occupational status: unemployed Cognitive needs: Yes (cane) Hearing needs: No Vision needs: Yes (rx glasses) Questionnaire PHQ-9 Over the last 2 weeks, how often have you been bothered by any of the following problems? 1. Little interest or pleasure in doing things: nearly every day 2. Feeling down, depressed, or hopeless: nearly every day 3. Trouble falling or staying asleep, or sleeping too much: nearly every day 4. Feeling tired or having little energy: nearly every day 5. Poor appetite or overeating: more than half the days 6. Feeling bad about yourself - or that you are a failure or have let yourself or your family down: several days 7. Trouble concentrating on things, such as reading the newspaper or watching television: several days 8. Moving or speaking so slowly that other people could have noticed. Or the opposite - being so fidgety or restless that you have been moving around a lot more than usual: several days 9. Thoughts that you would be better off or of hurting yourself in some way: not at all Total score: 17 Depression Screening Interpretation: Positive Depression Screening Follow-up: Follow-up Visit Requested Depression Screening Done: Yes Source: Developed by Drs. Clint Piper, Daisy Andrews, Elier Meyers and colleagues, with an educational bill from [employer]. Thrive Questionnaire Date Thrive assessed: 03/17/25 I am a: Patient What is your living situation today?: I choose not to answer this question Within the past 12 months, did the food you bought not last and you didn't have the money to get more?: I choose not to answer this question Within the past 12 months, did you worry whether your food would run out before you got money to buy more?: I choose not to answer this question Do you have trouble paying for medicines?: I choose not to answer this question Do you have trouble getting transportation to medical appointments?: Yes Do you have trouble paying your heating and electricity bill?: I choose not to answer this question Do you have trouble taking care of your child, family member or friend?: No Do you have trouble with day-to-day activities such as bathing, preparing meals, shopping, managing finances, etc.?: No Are you currently unemployed and looking for a job?: Yes Are you interested in more education?: No Currently or been in a relationship where the following occur: No concerns reported THRIVE Score: 1 AUDIT C Alcohol Use Questionnaire (AUDIT-C) 1. How often do you have a drink containing alcohol?: Monthly or less 2. How many drinks containing alcohol do you have on a typical day when you are drinking?: 1 or 2 3. How often do you have six or more drinks on one occasion?: Never Total Score: 1 BUDDY-7 AMB Questionnaire BUDDY-7 Date BUDDY - 7 assessed: 03/17/25 Feeling nervous, anxious, or on edge: 0 = Not at all Not being able to stop or control worryin = Not at all Worrying too much about different things: 0 = Not at all Trouble relaxin = Not at all Being so restless that it is hard to sit still: 0 = Not at all Becoming easily annoyed or irritable: 0 = Not at all Feeling afraid as if something awful might happen: 0 = Not at all Total BUDDY-7 score (0-4 normal; 5-9 mild; 10-14 moderate; 15-21 severe): 0 Source: Developed by Drs. Clint Piper, Daisy Andrews, Elier Meyers and colleagues, with an educational bill from [employer]. Review of Systems Narrative Review of Systems - Musculoskeletal: Reports bilateral heel pain for 3-4 years, which is sometimes sharp, and notes a bulge on her ankle. - Neurological: Reports feeling off balance at times. - Cardiovascular: Reports sharp pains in the heart area for the past 1-2 weeks. 10-point ROS reviewed and negative except as noted in HPI Physical exam (Primary Care) Tobacco/Smoking Status: Tobacco use Status Tobacco use date assessed 03/17/25 03/17/25 09:03 Patient Tobacco Use Status Never used Tobacco 03/17/25 09:03 e-Cigarette/Vaping Use Currently Using 03/17/25 09:03 PHQ-9: PHQ-9 Score PHQ-9: Total score 17 03/17/25 09:29 Depression Screening Interpretation: Positive Depression Screening Follow-up: Follow-up Visit Requested Thrive Assessment: Date of Thrive Assessment Date Thrive assessed 03/17/25 03/17/25 09:03 Currently or been in a relationship where the following occur: No concerns reported Narrative Physical Exam General: Well-appearing, in no acute distress. Vital signs: Within normal limits. HEENT: Normocephalic, atraumatic. PERRLA, EOMI. Conjunctiva clear, sclera anicteric. Oropharynx clear, mucous membranes moist. TMs intact bilaterally. Neck: Supple, no lymphadenopathy, no thyromegaly, no JVD or carotid bruits. Cardiovascular: RRR, normal S1/S2, no murmurs, rubs, or gallops. Peripheral pulses 2+ and symmetric. No edema. Patient reports sharp pain in the heart area, started noticing about two weeks ago. Electrocardiogram to be performed. Respiratory: Lungs clear to auscultation bilaterally, no wheezes, rales, or rhonchi. Normal effort. Abdomen: Soft, non-tender, non-distended. Normoactive bowel sounds. No hepatosplenomegaly, no masses. MSK: Full range of motion, no joint swelling or deformity. Normal gait. Patient reports bilateral heel pain, more pronounced on the left, ongoing for three to four years, with a bulge on the ankle. Referral to podiatry provided. Skin: Warm, dry, intact. No rashes, lesions, or pallor. Neuro: Alert and oriented x3. Cranial nerves II-XII intact. Strength 5/5 throughout. Sensation intact. Reflexes 2+ symmetric. Normal coordination and gait. Patient reports sometimes feeling out of balance. Psych: Appropriate mood and affect. Normal judgment and insight. Office Procedures Flu Questionnaire Does the patient have a severe egg allergy?: No Does the patient have severe life threatening allergies?: No Does the patient have a fever or illness today?: No Has the patient ever had Guillain-Quinnesec Syndrome?: No Has the patient ever had any past reaction to a flu shot?: No Immunizations Fluarix [id number] (PF) 45 mcg (15 mcg x 3)/0.5 mL IM syringe Performing Provider: Dwayne Huntley MD [place]forming Location: [facility] Documented (not given) by: Dipti Catalan CMA on 03/17/25 09:05 Reason Not Given: Patient Refused Coding Level of Care Code Est Pt Level 3 (57335) Add On Problem Visit Only Diagnoses Sinus tachycardia R00.0 Chest pain R07.9 Diabetes type 2 E11.9 Hyperlipidemia E78.5 Heel pain M79.673 Stress at home F43.9 Unemployed Z56.0 Vapes non-nicotine containing substance Z72.89 Assessment & Plan Assessment & Plan (1) Sinus tachycardia: Code(s): R00.0 - Tachycardia, unspecified Category: Medical (2) Chest pain: Code(s): R07.9 - Chest pain, unspecified Category: Medical (3) Diabetes type 2: Code(s): E11.9 - Type 2 diabetes mellitus without complications Category: Medical (4) Hyperlipidemia: Code(s): E78.5 - Hyperlipidemia, unspecified Category: Medical (5) Heel pain: Code(s): M79.673 - Pain in unspecified foot Category: Medical (6) Stress at home: Code(s): F43.9 - Reaction to severe stress, unspecified Category: Medical (7) Unemployed: Code(s): Z56.0 - Unemployment, unspecified Category: Medical (8) Vapes non-nicotine containing substance: Code(s): Z72.89 - Other problems related to lifestyle Category: Medical Plan Consent Patient was informed and verbally consented to the use of an ambient scribe for clinic note documentation during this visit. Plan 1. Pap Smear Screening - The patient was informed that her Pap smear results were normal. - Follow-up Pap smear is scheduled in three years. 2. Cologuard Screening - The results for the Cologuard test are pending. 3. Ssi Application Paperwork - The patient was advised to provide the SSI forms to the front desk supervisor to be filled out. 4. Bilateral Heel Pain - A referral to podiatry will be provided for further evaluation of bilateral heel pain and associated unsteadiness. 5. Chest Pain - The patient was advised to stop vaping as a first step. - An electrocardiogram (EKG) will be performed in the office today. - The patient was instructed to go to the emergency room if she experiences chest pain with pressure or shortness of breath. Discussion Notes I informed the patient that her Pap smear results were normal and that she will not need to repeat the test for another three years. Regarding her new onset of sharp chest pain, I discussed that vaping puts her at risk for heart problems and advised her to stop. I advised her to proceed to the emergency room for any chest pain accompanied by pressure or shortness of breath. We will proceed with an in-office EKG today to evaluate her symptoms. For her chronic bilateral heel pain, I will provide a referral to podiatry. I also agreed to complete disability forms for her and instructed her to leave them with the front [employer] staff. Patient Instructions - Your Pap smear results are normal. Your next Pap smear is due in three years. - We will perform an EKG in the office today to check your heart. - Go to the emergency room if you experience chest pain, pressure on your chest, or feel out of breath. - It is important that you stop vaping, as it increases your risk for heart problems. - I will give you a referral to a manager of selection and assessment (foot doctor) to evaluate your heel pain. - Please leave the forms you have with the stockroom clerk at the [employer] so I can fill them out for you. Medical Decision Making The patient presented for results review and to discuss several chronic and new complaints. Her recent Pap smear was normal, and she is due for repeat screening in three years. She reports new onset sharp chest pain, which is concerning given her active vaping. While this could be anxiety-related, the risk from vaping warrants an initial cardiac workup. An in-office EKG was ordered to assess for any acute abnormalities, and she was counseled on smoking cessation and given strict return precautions to seek emergency care for worsening symptoms. Her chronic bilateral heel pain has been ongoing for years and is associated with unsteadiness and a sharp character upon ambulation. Given the duration and symptoms, a referral to podiatry is appropriate for specialized evaluation. Finally, I will assist the patient by completing her disability paperwork related to her diabetes and other health concerns to support her application for financial assistance. Total Time Statement 20 min Total time spent caring for the patient today includes pre-visit chart review, documentation, review of laboratory and diagnostic imaging results, medication reconciliation, medically necessary evaluation, counseling on diagnoses, care coordination, ordering appropriate tests and medications, review of tests performed by other providers, reporting test results to the patient, and communication with other healthcare providers. Orders: Orders AMB EKG-In Office Today Z13.6 - Encounter for screening for cardiovascular disorders Influenza [id number] Immunization Today Z23 - Encounter for immunization Referrals Podiatry Referral M79.673 - Pain in unspecified foot
== END 2025-03-17 09:33 | disposition home or self-care (01) ==
LOC: HO.HMCFMS 08:52
PROVIDERS: PCP Family Medicine; Visit Provider Student in an Organized Health Care Education/Training Program
DX: R00.0 Tachycardia, unspecified (principal); R07.9 Chest pain, unspecified; E11.9 Type 2 diabetes mellitus without complications; E78.5 Hyperlipidemia, unspecified; M79.673 Pain in unspecified foot; F43.9 Reaction to severe stress, unspecified; Z56.0 Unemployment, unspecified; Z72.89 Other problems related to lifestyle; Z23 Encounter for immunization

== ENCOUNTER → 2025-03-17 08:52 | Outpatient (BNVA) | payer OTHER, SELFPAY | PROVIDERS: PCP Family Medicine; Visit Provider Student in an Organized Health Care Education/Training Program | DX: Z71.2 Person consulting for explanation of examination or test findings (principal); R00.0 Tachycardia, unspecified; R07.9 Chest pain, unspecified; E11.9 Type 2 diabetes mellitus without complications; E78.5 Hyperlipidemia, unspecified; M79.671 Pain in right foot; M79.672 Pain in left foot; F43.9 Reaction to severe stress, unspecified; Z72.89 Other problems related to lifestyle; Z13.31 Encounter for screening for depression; Z13.39 Encounter for screening examination for other mental health and behavioral disorders | CPT/HCPCS: 90471; 96127; 99212 ==